=== PATIENT | female | born 1960 | race Caucasian/White ===

== ENCOUNTER 2024-03-13 11:28 | Emergency (ER) | payer BC ==
--- NOTE | 2024-03-13 12:10 | ED ---
General Adult HPI <Dominic Arteaga Ubaldo - Last Filed: 03/13/24 13:50> - General Source: patient, EMS, RN notes reviewed Mode of arrival: EMS Limitations: no limitations <Shirin Mccollum - Last Filed: 03/13/24 14:40> - General Chief complaint: Extremity Injury, Upper Stated complaint: fall Time Seen by Provider: 03/13/24 11:52 - History of Present Illness Initial comments: 64-year-old female presents to the emergency department for evaluation of fall with right arm injury. Patient states she was walking out of [employer] with her hands full. She states that she tripped over the curb and fell onto her right side. She states that she landed on her right arm. She denies head injury, blood thinners. Denies any other injury. (Shirin Mccollum) - Related Data Allergies Allergy/AdvReac Type Severity Reaction Status Date / Time amoxicillin [From Augmentin] Allergy Rash/Hives Verified 03/13/24 11:41 clarithromycin Allergy Nausea & Verified 03/13/24 11:41 Vomiting & Diarrhea clavulanic acid Allergy Rash/Hives Verified 03/13/24 11:41 [From Augmentin] wool Allergy Rash/Hives Verified 03/13/24 11:41 prednisone AdvReac Rash/Hives Verified 03/13/24 11:41 Z-pack Allergy Rash/Hives Uncoded 03/13/24 11:41 Review of Systems ROS Other: All systems not noted in ROS Statement are negative. <WilliamlanaDominic Ubaldo - Last Filed: 03/13/24 13:50> ROS Other: All systems not noted in ROS Statement are negative. <Shirin Mccollum - Last Filed: 03/13/24 14:40> ROS Statement: Those systems with pertinent positive or pertinent negative responses have been documented in the HPI. Past Medical History Additional Past Medical History / Comment(s): High heart rate 2014 Past Surgical History: Hysterectomy Additional Past Surgical History / Comment(s): bladder sling 2022 Past Psychological History: No Psychological Hx Reported Smoking Status: Never smoker Past Alcohol Use History: None Reported Past Drug Use History: None Reported <Shirin Mccollum - Last Filed: 03/13/24 14:40> General Exam Limitations: no limitations General appearance: alert, in no apparent distress Head exam: Present: atraumatic, normocephalic, normal inspection Eye exam: Present: normal appearance, PERRL, EOMI. Absent: scleral icterus, conjunctival injection, periorbital swelling ENT exam: Present: normal exam, mucous membranes moist Respiratory exam: Present: normal lung sounds bilaterally. Absent: respiratory distress, wheezes, rales, rhonchi, stridor Cardiovascular Exam: Present: regular rate, normal rhythm, normal heart sounds. Absent: systolic murmur, diastolic murmur, rubs, gallop, clicks Extremities exam: Present: full ROM, tenderness, normal capillary refill, other (radial pulses 2+ ). Absent: pedal edema, joint swelling, calf tenderness Neurological exam: Present: alert, oriented X3 Psychiatric exam: Present: normal affect, normal mood Skin exam: Present: warm, dry, intact, normal color. Absent: rash <Shirin Mccollum - Last Filed: 03/13/24 14:40> Course Vital Signs 03/13/24 03/13/24 03/13/24 11:32 13:31 13:39 Temperature 98.2 F Pulse Rate 80 76 77 Respiratory 20 16 16 Rate Blood Pressure 140/74 110/68 122/77 O2 Sat by Pulse 97 98 98 Oximetry 03/13/24 14:00 Temperature Pulse Rate 79 Respiratory 16 Rate Blood Pressure 123/70 O2 Sat by Pulse 95 Oximetry Procedures - Orthopedic Joint Reduction Joint #1 Consent Obtained: written consent Side: right Joint Reduction Location: shoulder Analgesia: procedural sedation Shoulder Technique Used (if applicable): traction/counter-traction, external rotation Post-Reduction Neuro Exam: intact Post-Reduction Vascular Exam: intact Post Reduction X-Ray Obtained: Yes Post Reduction X-Ray Results: reduced Splint Applied: Yes Patient Tolerated Procedure: well - Procedural Sedation *Procedural Sedation Start Time: 13:30 *Procedural Sedation Stop Time: 14:10 *Risks,benefits, and alternative therapies discussed?: Yes *Patient indicates understanding of risk/benefit discussion?: Yes *Indications: fracture/dislocation reduction *Previous Adverse Reaction to Anesthesia/Sedation?: No * Testing Complete?: No Reason Test Not Complete:: Age > 60 *ASA Class: II *Mallampati Airway Score: 2 Preparation: rn rehab applied, pulse oximeter, capnometry used, supplemental O2 applied, suction/airway equipment at bedside, IV secured IV Propofol Dose (mgs): 35 Complications: none Interventions: oxygen applied Patient Tolerated Procedure: well <Dominic Arteaga Ubaldo - Last Filed: 03/13/24 13:50> - Procedural Sedation Presedation Evaluation: Medications reviewed, n.p.o. status, and chronic medical conditions. (Dominic Arteaga) Medical Decision Making <Shirin Mccollum - Last Filed: 03/13/24 14:40> - Medical Decision Making Was pt. sent in by a medical professional or institution (, PA, INTERMEDIATE MANAGER, urgent care, hospital, or [facility]...) When possible be specific @ -[No] Did you speak to anyone other than the patient for history (EMS, parent, family, police, friend...)? What history was obtained from this source @ -[No] Did you review nursing and triage notes (agree or disagree)? Why? @ -[I reviewed and agree with nursing and triage notes] Were old charts reviewed (outside hosp., previous admission, EMS record, old EKG, old radiological studies, urgent care reports/EKG's, [facility] records)? Report findings @ -[No old charts were reviewed] Differential Diagnosis (chest pain, altered mental status, abdominal pain women, abdominal pain men, vaginal bleeding, weakness, fever, dyspnea, syncope, headache, dizziness, GI bleed, back pain, seizure, CVA, palpatations, mental health, musculoskeletal)? @ -[Differential Musculoskeletal Muscular strain, contusion, ligament sprain, fracture, arthritis, septic arthritis, bursitis, cellulitis, muscle spasm, nerve compression, DVT, arterial occlusion, herpes zoster, electrolyte abnormality, tumor.... This is not meant to be in all inclusive list] EKG interpreted by me (3pts min.). @ -None X-rays interpreted by me (1pt min.). @ -X-ray right humerus shows CT interpreted by me (1pt min.). @ -[None done] U/S interpreted by me (1pt. min.). @ -[None done] What testing was considered but not performed or refused? (CT, X-rays, U/S, labs)? Why? @ -[None] What meds were considered but not given or refused? Why? @ -[None] Did you discuss the management of the patient with other professionals (professionals i.e. DrTravis, PA, INTERMEDIATE MANAGER, lab, RT, psych nurse, medical social worker, silk weaver, teacher, event security officer, case liner)? Give summary @ -[No] Was smoking cessation discussed for >3mins.? @ -[No] Was critical care preformed (if so, how long)? @ -[No] Were there social determinants of health that impacted care today? How? (Homelessness, low income, unemployed, alcoholism, drug addiction, transportation, low edu. Level, literacy, decrease access to med. care, usp, rehab)? @ -[No] Was there de-escalation of care discussed even if they declined (Discuss DNR or withdrawal of care, Hospice)? DNR status @ -[No] What co-morbidities impacted this encounter? (DM, HTN, Smoking, COPD, CAD, Cancer, CVA, ARF, Chemo, Hep., AIDS, mental health diagnosis, sleep apnea, morbid obesity)? @ -[None] Was patient admitted / discharged? Hospital course, mention meds given and route, prescriptions, significant lab abnormalities, going to OR and other pertinent info. @ -[hospital course] Undiagnosed new problem with uncertain prognosis? @ -[No] Drug Therapy requiring intensive monitoring for toxicity (Heparin, Nitro, Insulin, Cardizem)? @ -[No] Were any procedures done? @ -[No] Diagnosis/symptom? @ -[default] Acute, or Chronic, or Acute on Chronic? @ -[default] Uncomplicated (without systemic symptoms) or Complicated (systemic symptoms)? @ -[default] Side effects of treatment? @ -[No] Exacerbation, Progression, or Severe Exacerbation? @ -[No] Poses a threat to life or bodily function? How? (Chest pain, USA, SC, pneumonia, PE, COPD, DKA, ARF, appy, cholecystitis, CVA, Diverticulitis, Homicidal, Suicidal, threat to staff... and all critical care pts) @ -[No] (Shirin Mccollum) Disposition <Dominic Arteaga - Last Filed: 03/13/24 13:50> Is patient prescribed a controlled substance at d/c from ED?: No <Shirin Mccollum - Last Filed: 03/13/24 14:40> Clinical Impression: Anterior dislocation of right shoulder Disposition: HOME SELF-CARE Condition: Stable Instructions (If sedation given, give patient instructions): Shoulder Dislocation (ED) Additional Instructions: Please follow up with orthopedics. Alternate Tylenol and Motrin for pain. Rest, ice the arm and shoulder. Return to the emergency department for new or worsening symptoms. Referrals: Rickey An DO [Primary Care Provider] - 1-2 days Edd Wells DO [Doctor of Osteopathic Medicine] - 1-2 days
[2024-03-13] MEDS: KETOROLAC 15 MG/ML 1 ML VIAL IVP STA (12:14)
--- NOTE | 2024-03-13 12:49 | XR ---
EXAMINATION TYPE: XR humerus RT DATE OF EXAM: 03/13/2024 COMPARISON: None HISTORY: Pain, fall TECHNIQUE: 2 view right humerus FINDINGS: There is dislocation of the humeral head from the glenoid. No acute fractures identified. Lower humerus has limited evaluation with overlapping structures. IMPRESSION: 1. Dislocation of right humeral head from the glenoid.
[2024-03-13] MEDS: HYDROmorphone 0.5 MG/0.5 ML SYRINGE IVP STA (13:23)
[2024-03-13] MEDS: PROPOFOL 10 MG/ML 20 ML VIAL IV ONE ×2 (13:37→13:38)
[2024-03-13 14:12] VITALS: RESP 16
--- NOTE | 2024-03-13 15:10 | XR ---
EXAMINATION TYPE: XR shoulder limited RT DATE OF EXAM: 03/13/2024 COMPARISON: Earlier exam HISTORY: Dislocated shoulder TECHNIQUE: AP view right shoulder FINDINGS: Humeral head articulates with the glenoid. No acute fracture or dislocation is evident. Maribeth or dislocations been reduced. Acromioclavicular junction appears intact. IMPRESSION: 1. Reduction of previous right shoulder dislocation.
[2024-03-13 15:50] VITALS: BP 129/73; PULSE 78; TEMP 97.9
== END 2024-03-13 15:06 | disposition home or self-care (01) ==
LOC: EC 11:28
DX: S43.014A Anterior dislocation of right humerus, initial encounter (principal); Z88.0 Allergy status to penicillin; Z88.1 Allergy status to other antibiotic agents; Z88.8 Allergy status to other drugs, medicaments and biological substances; Z91.09 Other allergy status, other than to drugs and biological substances; W01.0XXA Fall on same level from slipping, tripping and stumbling without subsequent striking against object, initial encounter; Y93.01 Activity, walking, marching and hiking
CPT/HCPCS: 23650; 99284; 96374; 96375; 73020; 73060; 99152; 99153; J1885; J2704; J1170